=== PATIENT | female | born 1970 | race Asian ===

== ENCOUNTER 2020-01-16 11:02 | Day surgery (SDC) | payer OTHER ==
[2020-01-10 11:51] VITALS: BMI 21.2
--- NOTE | 2020-01-14 10:36 | HP ---
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 Patient's recent ultrasound of the abdomen completed on July 19, 2019, had demonstrated a 2.4-cm gallstone. On close questioning, the patient has a definite fatty food intolerance by history. There has been no unintentional weight loss. Other members of her family who have had gallbladder issues. Although the patient feels that she may have had some yellowishness to her eyes in the past, that has not been recent. Patient has no past medical history otherwise. No history of hypertension, heart disease, diabetes, respiratory, renal, or hepatic insufficiency. PAST SURGICAL HISTORY: Nil. ALLERGIES: None known. CURRENT MEDICATIONS: None. SOCIAL HISTORY: Negative tobacco. Negative alcohol. FAMILY HISTORY: Mother history of a benign brain tumor. No other family history. REVIEW OF SYSTEMS: Nil. PHYSICAL EXAMINATION: Abdomen: Flat, soft, nontender with no palpable abnormality. IMPRESSION: Chronic cholecystitis/cholelithiasis. PLAN: Laparoscopic cholecystectomy/possible open cholecystectomy. Indications, alternatives, possible complications reviewed. Consent obtained. Patient to be seen preoperatively by Dr. Russell Javed. Please refer to his notes for those medical details. ROSS CARRILLO M.D. [id number] cc: Russell Javed MD
[~2020-01-16 11:02] MED LIST: DEXAMETHASONE SOD PHOSPHATE 4 MG/1 ML VIAL ONE; LACTATED RINGERS SOLUTION 1,000 ML IV SCH; MIDAZOLAM HCL 2 MG/2 ML SINGLE DOSE VIAL ONE; MORPHINE SULFATE 10 MG/1 ML *VIAL IVPB PRN; ONDANSETRON 4 MG/2 ML VIAL IVPUSH PRN; PROPOFOL 20 ML ONE; ROCURONIUM BROMIDE 50 MG/5 ML SYRINGE ONE; SUCCINYLCHOLINE CHLORIDE 200 MG/10 ML SYRINGE ONE; ceFAZolin SODIUM 1 GM VIAL ONE; oxyCODONE HCL 5 MG TABLET PO PRN
[2020-01-16] MEDS ORDERED: IBUPROFEN 800 MG/8 ML IJ IVPB PRN (11:04)
--- NOTE | 2020-01-16 11:08 | HP ---
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 For the past couple years the patient has been experiencing intermittent bouts of upper abdominal discomfort, generally postprandial, usually beginning in the epigastrium but radiation to both right and left upper quadrants and to her back. Ultrasound evaluation of the abdomen last completed in July of this year demonstrated cholelithiasis. On questioning, the patient has a definite fatty food intolerance by history. There is no unintentional weight loss. Patient feels that she may have noticed some yellow coloration to her eyes in the past, but not recently. PAST MEDICAL HISTORY: No past medical history otherwise. No history of hypertension, heart disease, diabetes, respiratory nor hepatic insufficiency. PAST SURGICAL HISTORY: Nil. ALLERGIES: None known. CURRENT MEDICATIONS: None. SOCIAL HISTORY: Negative tobacco, negative alcohol. FAMILY HISTORY: Mother, history of benign brain tumor. No other family history. REVIEW OF SYSTEMS: Nil. PHYSICAL EXAMINATION: General: Awake, alert, in no acute distress. Abdomen: Flat, soft, nontender, no palpable abnormalities. IMPRESSION: Chronic cholecystitis/cholelithiasis. PLAN: Laparoscopic cholecystectomy, possible open cholecystectomy. Indications, alternatives, possible complications were reviewed. Consent obtained. Please see Dr. Russell Javed's preoperative notes that refer to the patient's medical details. ROSS CARRILLO M.D. [id number] cc: Russell Javed MD
[2020-01-16] MEDS ORDERED: D5-1/2NS+20 MEQ KCL - 20 MEQ/1,000 ML INFUS.BAG IV SCH (11:15)
[2020-01-16] MEDS ORDERED: DEXAMETHASONE SOD PHOSPHATE 4 MG/1 ML VIAL ONE (11:26)
[2020-01-16] MEDS ORDERED: NEOSTIGMINE METHYLSULFATE 0.5 MG/ML - 10 ML MDV ONE (11:26)
[2020-01-16] MEDS ORDERED: GLYCOPYRROLATE 0.2 MG/1 ML VIAL ONE (11:26)
--- NOTE | 2020-01-16 20:02 | OP ---
DATE OF OPERATION: 01/16/2020 PREOPERATIVE DIAGNOSIS: Chronic cholecystitis/cholelithiasis. POSTOPERATIVE DIAGNOSIS: Chronic cholecystitis/cholelithiasis. PROCEDURE: Laparoscopic cholecystectomy. 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 Indications, alternatives, possible complications reviewed. Consent obtained. DESCRIPTION OF PROCEDURE: With the patient in the supine position, under general anesthesia, the abdomen was prepped and draped in sterile fashion using chlorhexidine. A small infraumbilical incision was made through which a Veress needle was placed into the abdominal cavity. The abdominal cavity was insufflated to an adequate pressure and volume using CO2 gas. Veress needle was removed. An 11-mm trocar port placed through the infraumbilical wound into the abdominal cavity. The abdominal cavity pressure was maintained at 15. The camera lens passed through the infraumbilical port site, and the intraabdominal cavity visualized. Under direct vision, two 5-mm right anterolateral ports were placed through which clamps were passed to maintain traction on the gallbladder and aid in the dissection. An 11-mm port was placed in the epigastrium, through which the operating instruments were passed. Limited exploration of the abdomen revealed several adhesions about the gallbladder, otherwise no significant findings encountered. These adhesions about the gallbladder were taken down, exposing the entire gallbladder and hepatoduodenal ligament. The peritoneum and hepatoduodenal ligament was incised. The cystic duct was identified. The cystic duct/bile duct junction was noted. The cystic duct was clipped proximally and distally and divided. The adjacent cystic artery was identified, clipped, and divided as well. The gallbladder was then removed from the gallbladder bed, lysing its peritoneal attachment using the electrocautery. Prior to complete disconnection, the bed was inspected, and afterwards adequate hemostasis assured. The gallbladder was freed. All ports were then removed under direct vision. No bleeding identified. The gallbladder was passed through the infraumbilical wound under direct vision and delivered uneventfully. The pneumoperitoneum was allowed to escape. The fascia at the infraumbilical wound site was closed using interrupted 0 Vicryl sutures. All skin wounds were closed using subcuticular 4-0 Biosyn sutures. Needle, instrument counts were correct. Estimated blood loss minimal. Specimen gallbladder. Drains none. Patient tolerated procedure. Procedure was terminated. ROSS GIL M.D. [id number] MTDD
[2020-01-16] MEDS: FAMOTIDINE 20 MG/50 ML IVPB 20 MG/50 ML MG IVPB SCH (21:45)
[2020-01-17] MEDS ORDERED: ENOXAPARIN NA (PORCINE) 40 MG/0.4 ML DISP.SYRIN SQ SCH (10:00)
[2020-01-17] MEDS: FAMOTIDINE 20 MG/50 ML IVPB 20 MG/50 ML MG IVPB SCH (10:22)
[2020-01-17 14:01] VITALS: BP 110/62; PULSE 61; TEMP 98.8
--- NOTE | 2020-01-18 16:37 | PATH ---
Surgical Pathology Report Patient Name: ADALGISA DE LA CRUZ Med. Rec. #: [id number] /Age/Gender: 1970 (Age: 49) / F Account: [id number] Location: [facility] Taken: 01/16/2020 Received: 01/16/2020 Reported: 01/18/2020 Physicians: Samuel Gil M.D. Specimen(s) Received GALLBLADDER & STONES Clinical History Cholecystitis, cholelithiasis Final Diagnosis GALLBLADDER, CHOLECYSTECTOMY: CHRONIC CHOLECYSTITIS WITH CHOLESTEROLOSIS. CHOLELITHIASIS. Electronically Signed Katherine Dahl M.D. Gross Description Received in formalin, labeled "gallbladder," is a 7.0 x 2.3 x 2.2 cm. gallbladder with a 0.2 cm. in length portion of cystic duct attached. The outer surface is steel green and varies from smooth to shaggy. The lumen contains green, tenacious bile as well as a single green, irregular cholelith measuring 2.0 cm in greatest dimension. The mucosa is green and velvety with gold cholesterol stippling. The wall of the gallbladder averages 0.1 cm. in thickness. Food General Manager sections are submitted in one cassette. /01/17/2020 saudi01/17/2020
== END 2020-01-17 14:30 | disposition home or self-care (01) ==
LOC: FM/S 11:02 → FASUSAT 11:02
PROVIDERS: ATTEND Surgery
PROC: 0FT44ZZ Resection of Gallbladder, Percutaneous Endoscopic Approach (ICD-10-PCS; principal; 2020-01-16 11:06)
DX: K80.10 Calculus of gallbladder with chronic cholecystitis without obstruction (principal)
CPT/HCPCS: 88304-TC; 94760

== ENCOUNTER 2020-10-30 05:04 | Day surgery (SDC) | payer OTHER ==
[2020-10-29 15:54] VITALS: BMI 21.1
[2020-10-30] MEDS ORDERED: MIDAZOLAM HCL 2 MG/2 ML SINGLE DOSE VIAL IVPUSH ONE ×3 (12:15→14:45)
[2020-10-30 14:59] VITALS: TEMP 98.2
[2020-10-30 17:20] VITALS: BP 110/60
[2020-10-30 17:28] VITALS: PULSE 60
== END 2020-10-30 16:30 | disposition home or self-care (01) ==
LOC: JRADIR 05:04
PROVIDERS: ATTEND Internal Medicine Gastroenterology
PROC: 0FB03ZX Excision of Liver, Percutaneous Approach, Diagnostic (ICD-10-PCS; principal; 2020-10-30)
DX: K76.0 Fatty (change of) liver, not elsewhere classified (principal)
CPT/HCPCS: 47000; 76942-TC; 88305-TC; 88313-TC